=== PATIENT | female | born 1960 | race Caucasian/White ===

== ENCOUNTER 2017-01-20 06:10 | Inpatient (IN) ==
[2017-01-20] MEDS ORDERED: CeFAZolin Pre 2,000 MG/100 ML 2,000 MG/100 ML BAG IVPB ONE (06:26)
[2017-01-20] MEDS ORDERED: Ringers Solution, Lactated 1,000 ML IVC SCH (06:30)
[2017-01-20] MEDS ORDERED: *HR* FentaNYL (PF) 100 MCG/2 ML VIAL ONE (07:06)
[2017-01-20] MEDS ORDERED: *HR* Propofol 200 MG/20 ML VIAL IVP ONE (07:06)
[2017-01-20] MEDS ORDERED: Dexamethasone 4 MG/ML VIAL ONE (07:06)
[2017-01-20] MEDS ORDERED: *HR* Midazolam HCl 2 MG/2 ML VIAL ONE (07:06)
[2017-01-20] MEDS ORDERED: *HR* Rocuronium Bromide 50 MG/5 ML VIAL ONE (07:06)
[2017-01-20] MEDS ORDERED: Neostigmine Methylsulfate 3 MG/3 ML SYRINGE ONE (07:06)
[2017-01-20] MEDS ORDERED: Ondansetron 4 MG/2 ML VIAL ONE (07:06)
[2017-01-20] MEDS ORDERED: *HR* Succinylcholine 200 MG/10 ML VIAL IVP ONE (07:06)
[2017-01-20] MEDS ORDERED: Lidocaine -MPF 4% 5 ML AMPUL ONE (07:06)
[2017-01-20] MEDS ORDERED: Lidocaine -MPF 2% 2 ML VIAL ONE (07:07)
--- NOTE | 2017-01-20 07:08 | Anesthesia Evaluation PreOp ---
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 History: Denies Any Significant HX Other Medical History: Thyroid, GERD, Other (bipolar, PTSD, anxiety) Anesthesia History: No Prior Anesthetic Complications, Past Anesthesia ( hysterectomy) Alcohol Use: occasionally Drug use: marijuana Medications and Allergies Alendronate Sodium 45 mg PO FR 08/11/15 [History] Levothyroxine [Synthroid] 25 mcg PO 0630 08/11/15 [History] Methocarbamol [Robaxin-750] 750 mg PO Q4H PRN 08/11/15 [History] Multivitamin [Flintstones] 1 each PO DAILY 08/11/15 [History] Psyllium Husk [Fiber] 0.52 gm PO DAILY 08/11/15 [History] SUMAtriptan Succinate [Imitrex] 100 mg PO DAILY PRN 08/11/15 [History] Topiramate [Topamax] 50 mg PO BID 08/11/15 [History] Alprazolam [Xanax 1 MG Tablet] 1 mg PO DAILY PRN 05/24/16 [History] Ergocalciferol (VITAMIN D2) [Vitamin D] 400 unit PO DAILY 05/24/16 [History] Gabapentin [Neurontin] 1,200 mg PO BID 05/24/16 [History] Pantoprazole Sodium [Protonix] 60 mg PO DAILY 05/24/16 [History] Quetiapine Fumarate [Seroquel] 300 mg PO HS 05/24/16 [History] Venlafaxine HCl [Venlafaxine HCl ER] 225 mg PO DAILY 10/27/16 [History] Allergies bupropion [From Wellbutrin] Adverse Reaction (Verified 10/27/16 08:37) Panic Attack fluoxetine [From Prozac] Adverse Reaction (Verified 10/27/16 08:37) Mood Swings Nickel Adverse Reaction (Verified 10/27/16 08:37) Hives sulfamethoxazole [From Bactrim] Adverse Reaction (Verified 10/27/16 08:37) Nausea trimethoprim [From Bactrim] Adverse Reaction (Verified 10/27/16 08:37) Nausea - Meds/Allergy Pre-op Review Medications Reviewed: Yes Allergies Reviewed: Yes Beta Blockers on Current Med List: No Anesthesia Results - Labs Laboratory Tests 05/12/16 12/10/16 01/18/17 14:51 13:40 09:40 WBC 6.5 Hgb 12.5 Hct 37.9 Plt Count 282 Sodium 143 Potassium 4.7 H BUN 17 Creatinine 0.87 - Imaging EKG: report reviewed (08/04/2015 SR, low QRS voltage in precordial leads, possible anterior/inferior infarct) Anesthesia Exam Height: 5' Weight: 182 lbs - HEENT Pupil (Motor): EOMI Mallampati: III Teeth: Normal Oral Opening: Greater than 3 - GLASS CALIBRATOR LOC: Oriented GLASS CALIBRATOR Motor: Normal RUE, Normal LUE, Normal RLE, Normal LLE, Normal Face GLASS CALIBRATOR Sensory: Normal: RUE, LUE, RLE, LLE, Face - Cardiac Rhythm: Regular Murmur: None - Pulmonary Breath Sounds: bilateral Clear Respiratory Effort: Symmetrical Anesthesia Assess/Plan ASA Score: 2 Modified [place] Scale for Level of Consciousness: Cooperative, oriented, and tranquil Anesthetic Plan: General Monitoring Plan: Standard Monitors Recovery Plan: PACU
[2017-01-20] MEDS ORDERED: *HR* Phenylephrine 10 MG/ML VIAL ONE (07:15)
--- NOTE | 2017-01-20 07:30 | History & Physical Report ---
Date of Encounter: 01/20/17 Time of Encounter: 07:20 24 Hour HP Update - Instructions Instructions: If the History and Physical is less than 30 days old and was completed prior to A.M. admission and or procedure and has NOT been updated on calendar day of procedure please complete this update prior to performing procedure. - Update Patient reports changes in Medical Condition: No Changes in examination, assessment, or condition: No Changes in Medication: No Preop tests/diagnostics Reviewed: Yes Surgery Remains Indicated: Yes Consent for Planned Operative Procedure(s) Verified: Yes - Pre-Operative Checklist Preoperative Checklist Indicated: Yes Prophylactic Antibiotic Ordered: Yes Home Medications Include Beta Rajni: No Is VTE Prophylaxis Indicated?: Yes
[2017-01-20] MEDS ORDERED: Ketamine *HR* 500 MG/10 ML MDV ONE (07:40)
[2017-01-20] MEDS ORDERED: *HR* Meperidine 25 MG/ML SYRINGE IVP PRN (08:22)
[2017-01-20] MEDS ORDERED: Ondansetron 4 MG/2 ML VIAL IVP PRN (08:22)
[2017-01-20] MEDS ORDERED: *HR* Promethazine 25 MG/ML VIAL IVP PRN ×2 (08:22→21:59)
[2017-01-20] MEDS ORDERED: Naloxone 0.4 MG/ML INJ IVP PRN (08:22)
[2017-01-20] MEDS ORDERED: CefOXitin 1,000 MG VIAL ONE (09:14)
[2017-01-20] MEDS ORDERED: Bupivacaine/EPI 1:200k 0.5%PF 30 ML VIAL ONE (09:26)
[2017-01-20] MEDS ORDERED: *HR* HYDROmorphone 2 MG/ML SYRINGE ONE (09:32)
--- NOTE | 2017-01-20 09:40 | Operative Note ---
Date of procedure: 01/20/17 Pre-op diagnosis: Paraesophageal hernia with gastric volvulus Post-op diagnosis: same Procedure: Open repair of paraesophageal hiatal hernia. Pb fundoplication Anesthesia: JACK Surgeon: Juventino Call Estimated blood loss (cc): 20 Specimen: Hernia sac Condition: stable Disposition: PACU Procedure in Detail: After informed consent the patient was taken major operating suite and placed in supine position and given adequate general endotracheal anesthesia. The abdomen is prepped and draped in sterile fashion utilizing ChloraPrep standard draping techniques. Daquan taken patient is identified. Made an upper abdominal midline incision. As expected, the stomach was not visible in the abdomen and completely intrathoracic. I placed a Bookwalter retractor. I divided the triangular ligament of the lateral segment of the left lobe liver and rotated the lateral segment downward and medial. This exposed the hiatus. I divided the peritoneum overlying the front portion of the hiatus. A nasogastric tube was placed in the esophagus and the stomach and this allowed for initial dissection. I divided the hernia sac on the right side and lesser curve and dissected down to the right alexa of the diaphragm. Once this was done I was able to isolate the remainder of the hernia sac that initiated at the first short gastric of the cardia. This is an enormous hernia sac I removed this from the mediastinum.. The hernia sac was completely removed. I divided 3 short gastrics. This gave me complete visualization of the hiatus. I then surrounded the gastroesophageal junction with a Ramakrishna drain and retracted the GE junction left. I was able to clearly visualize the hiatus. The hiatal hernia repair was performed with 4 stitches of 2-0 Ethibond with pledgets. The cardia was brought behind the gastroesophageal junction into approximation for Pb fundoplication. 3 stitches of 2-0 Ethibond with pledgets were used to create the Pb fundoplication. I then placed a shoulder stitch on the right and left to stabilize the wrap to the diaphragm. Total blood loss 20 mL. This gave an excellent technical result. The stomach was completely intra-abdominal. There were no connections to the mediastinum. The wrap was performed around a lighted #56-Icelandic bougie which was removed at the end of the case. Midline was closed with looped 0 PDS and skin with interrupted Vicryl and skin clips.
[2017-01-20] MEDS: *HR* HYDROmorphone (PF) 1 MG/ML SYRINGE IVP PRN ×7 (09:59→22:25)
--- NOTE | 2017-01-20 10:29 | Anesthesia Evaluation Post Op ---
Date of Encounter: 01/20/17 Time of Encounter: 10:28 - Vital Signs Vital Signs: Vital Signs/O2 Sat, Most Current Temp Pulse Resp BP Pulse Ox 97.3 F L 74 16 130/75 98 01/20/17 10:24 01/20/17 10:24 01/20/17 10:24 01/20/17 10:24 01/20/17 10:24 - Lungs Lungs: Clear Ascult./Percussion - Airway Airway: Non-obstructed - Cardiovascular Regular Rate - Mental Status Mental Status: Alert & Oriented, Answers Appropriately - Pain Pain Scale: 4 Pain Scale used: Numeric (1 - 10) - Nausea Vomiting Nausea Vomiting: Not Present - Hydration Hydration: Ice chips - Discharge PostOp Status: Discharge Patient to home (VSS, awake, no anesthetic complications)
[2017-01-20] MEDS: 0.9 % Sodium Chloride 1,000 ML IVC SCH (12:12)
[2017-01-20] MEDS: Ondansetron 4 MG/2 ML VIAL IVP PRN (17:18)
[2017-01-20] MEDS: ceFAZolin 2,000 MG in D5% in Water 100 ML IVPB SCH (17:19)
[2017-01-20] MEDS: *HR* Heparin 5,000 UNIT/ML VIAL SQ SCH (17:19)
[2017-01-20] MEDS ORDERED: *HR* Heparin 5,000 UNIT/ML VIAL SQ SCH (18:00)
[2017-01-21] MEDS: ceFAZolin 2,000 MG in D5% in Water 100 ML IVPB SCH (00:10)
[2017-01-21] MEDS: *HR* HYDROmorphone (PF) 1 MG/ML SYRINGE IVP PRN ×6 (00:11→11:03)
[2017-01-21] MEDS: 0.9 % Sodium Chloride 1,000 ML IVC SCH ×2 (00:19→17:25)
[2017-01-21] MEDS: Ondansetron 4 MG/2 ML VIAL IVP PRN ×2 (03:12→12:34)
[2017-01-21] MEDS: *HR* Heparin 5,000 UNIT/ML VIAL SQ SCH ×2 (05:46→17:25)
[2017-01-21] MEDS: Pantoprazole 40 MG VIAL IVP SCH (07:47)
[2017-01-21] MEDS ORDERED: *HR* LORazepam 2 MG/ML VIAL IVP PRN (12:10)
--- NOTE | 2017-01-21 12:13 | General Surgery Progress Note ---
Date of Encounter: 01/21/17 Time of Encounter: 12:10 - Assessment and Plan (1) Hiatal hernia Current Visit: Yes Status: Chronic POD #1 Open repair of paraesophageal hiatal hernia. Pb fundoplication NPO IV fluids at 75ml/hour Supportive care/pain control- dilaudid DIRECTOR LAW ENFORCEMENT Increase activity- out of bed to chair IS every 1 hour while awake D/C michelle catheter Daily dressing change AM labs (2) GERD (gastroesophageal reflux disease) Current Visit: Yes Status: Chronic POD #1 Open repair of paraesophageal hiatal hernia. Pb fundoplication NPO IV fluids at 75ml/hour Supportive care/pain control- dilaudid DIRECTOR LAW ENFORCEMENT Increase activity- out of bed to chair IS every 1 hour while awake D/C michelle catheter PPI therapy daily Qualifiers: Esophagitis presence: esophagitis presence not specified Qualified Code(s) : K21.9 - Gastro-esophageal reflux disease without esophagitis (3) Anxiety Current Visit: Yes Status: Acute Hold PO meds due to NPO status Added Ativan IV every 8 hours prn Will monitor and adjust as necessary (4) DVT prophylaxis Current Visit: Yes Status: Acute Heparin 5,000 units SQ twice daily for DVT prophylaxis Subjective Patient reports: no new complaints, still having pain, no flatus, no bowel movement, afebrile, other (complaint of belching; patient tearful) Objective Vital Signs - Last 8 Hours Temp Pulse Resp BP Pulse Ox 01/21/17 11:38 98.2 F 86 18 124/86 95 01/21/17 07:41 98.1 F 81 18 118/76 94 Intake and Output 01/20/17 01/21/17 01/21/17 23:59 07:59 15:59 Intake Total 700 / 700 731 / 731 0 / 0 Output Total 750 / 750 600 / 600 250 / 250 Balance -50 / -50 131 / 131 -250 / -250 Intake: IV Fluids 700 / 700 731 / 731 0.9 % Sodium Chloride 1, 600 / 600 731 / 731 000 ML @ 75 mls/hr IVC . [id number] [facility] Rx#: [id number] Ancef 2,000 MG In 100 / 100 Dextrose 5% 100 ML @ 200 mls/hr IVPB Q8HR [facility] Rx#: [id number] Oral 0 / 0 0 / 0 Output: Urine 750 / 750 Urethral (Michelle) 750 / 750 Catheter 600 / 600 250 / 250 Other: Meal npo Weight 82.8 kg Blood Glucose* 123 92 99 Patient Weight 01/21/17 23:59 Weight 82.8 kg - General physical appearance well developed, well nourished, no distress, moderate pain - Eyes normal ocular movement - ENT atraumatic, normocephalic - Neck Neck exam: trachea midline - Respiratory normal respiratory effort, clear to auscultation, other (diminished bibasilar bases) - Cardiovascular Cardiovascular exam: Present: RRR - Abdomen Abdomen: Present: bowel sounds present, soft, tender (expected post-operative tenderness) - Incision Incision: Present: clean and dry, intact - Genitourinary other (michelle catheter to SD with clear, yellow urine noted) - Neurologic CN 2-12 grossly intact - Psychiatric oriented to time, oriented to person, oriented to place, speech is normal, memory intact - VTE Documentation of Mechanical Device: Intermittent pneumatic compression device Consult Discharge Plan - Plan Referrals: [facility] [Primary Care Provider] - - Attending Attestation I examined this patient and my medical decision-making was reviewed with the TIME CLOCK MECHANIC/PA/Advanced Practice Nurse/Resident Physician. I agree with the documented findings, disposition and treatment plan as described except to the extent set forth below. The patient was seen and evaluated on morning rounds. Her pain control is excellent. Her reflux is gone. Her dysphagia is gone. She is not having any chest pain on physical examination she has bowel sounds. I think if she is doing well this afternoon we will start voiding restricted diet as well as her medicines she is postoperative day 1 for reduction an enormous paraesophageal hernia with Pb fundoplication and hiatal hernia repair Juventino Call MD FACS
[2017-01-21] MEDS: Levothyroxine Sodium 100 MCG VIAL IVP SCH (12:34)
[2017-01-21] MEDS: *HR* HYDROmorphone 20 MG/20 ML PCA IVC PRN (13:02)
[2017-01-22 03:18] LABS: BUN/Creatinine Ratio 12 (6-26); Blood Urea Nitrogen 8 mg/dL (7-20); Calcium 8.6 mg/dL (8.6-10.8); Carbon Dioxide 20 mEq/L (19-29); Chloride 108 mEq/L (98-109); Glucose 99 mg/dL (70-99); Osmolality,Calculated 278 (280-300); Potassium 4.1 mEq/L (3.5-4.5); Sodium 135 mEq/L (136-145); eGFR For African Americans > 60 (> 60); eGFR For Non-African Americans > 60 (> 60)
[2017-01-22 03:22] LABS: Basophils % 0.1 %; Hematocrit 36.8 % (35.3-44.9); Hemoglobin 11.9 g/dL (11.5-15.4); Immature Granulocytes % 0.3 % (0-4); Immature Platelets 1.3 % (1.1-6.1); Mean Corpuscular HGB Conc 32.3 g/dL (31.6-35.5); Mean Corpuscular Hemoglobin 26.5 pg (28.0-33.3); Mean Platelet Volume 9.6 fL (9.4-12.4); Monocytes # 0.7 K/mcL (0.0-1.3); Monocytes % 8.1 %; Neutrophils # 7.1 K/mcL (1.6-8.9); Platelet Count 224 K/mcL (140-400); Red Blood Count 4.49 M/mcL (3.82-4.97); Segmented Neutrophils % 80.5 %
[2017-01-22 03:24] LABS: Platelet Estimate Normal (Normal)
[2017-01-22] MEDS: 0.9 % Sodium Chloride 1,000 ML IVC SCH ×2 (03:46→17:25)
[2017-01-22] MEDS: *HR* Heparin 5,000 UNIT/ML VIAL SQ SCH ×2 (06:04→17:26)
[2017-01-22] MEDS: Pantoprazole 40 MG VIAL IVP SCH (08:45)
[2017-01-22] MEDS: Levothyroxine Sodium 100 MCG VIAL IVP SCH (08:45)
--- NOTE | 2017-01-22 10:57 | General Surgery Progress Note ---
Date of Encounter: 01/22/17 Time of Encounter: 10:56 - Assessment and Plan (1) Hiatal hernia Current Visit: Yes Status: Chronic will start clears Subjective Patient reports: pain is less, flatus Objective Vital Signs - Last 8 Hours Temp Pulse Resp BP Pulse Ox 01/22/17 07:00 98.0 F 93 16 126/91 94 01/22/17 03:55 98.1 F 88 15 124/83 99 Intake and Output 01/21/17 01/22/17 01/22/17 23:59 07:59 15:59 Intake Total 669 / 669 0 / 0 Output Total 625 / 625 100 / 100 100 / 100 Balance 44 / 44 -100 / -100 -100 / -100 Intake: IV Fluids 669 / 669 0.9 % Sodium Chloride 1, 669 / 669 000 ML @ 75 mls/hr IVC . [id number] [facility] Rx#: [id number] Oral 0 / 0 0 / 0 Output: Urine 100 / 100 100 / 100 Catheter 625 / 625 Other: Meal NPO NPO breakfast Weight 83.234 kg Blood Glucose* 93 101 Patient Weight 01/22/17 23:59 Weight 83.234 kg - General physical appearance well nourished, no distress - Abdomen Abdomen: Present: bowel sounds present, soft, non tender - Incision Incision: Present: clean and dry - Labs 01/22/17 02:18 01/22/17 02:50 Diabetes panel 01/22/17 Range/Units 02:50 Sodium 135 L (136-145) mEq/L Potassium 4.1 (3.5-4.5) mEq/L Chloride 108 (98-109) mEq/L Carbon Dioxide 20 (19-29) mEq/L BUN 8 (7-20) mg/dL Creatinine 0.65 (0.57-1.11) mg/dL Glucose 99 (70-99) mg/dL Calcium 8.6 (8.6-10.8) mg/dL Calcium panel 01/22/17 Range/Units 02:50 Calcium 8.6 (8.6-10.8) mg/dL Pituitary panel 01/22/17 Range/Units 02:50 Sodium 135 L (136-145) mEq/L Potassium 4.1 (3.5-4.5) mEq/L Chloride 108 (98-109) mEq/L Carbon Dioxide 20 (19-29) mEq/L BUN 8 (7-20) mg/dL Creatinine 0.65 (0.57-1.11) mg/dL Glucose 99 (70-99) mg/dL Calcium 8.6 (8.6-10.8) mg/dL Adrenal panel 01/22/17 Range/Units 02:50 Sodium 135 L (136-145) mEq/L Potassium 4.1 (3.5-4.5) mEq/L Chloride 108 (98-109) mEq/L Carbon Dioxide 20 (19-29) mEq/L BUN 8 (7-20) mg/dL Creatinine 0.65 (0.57-1.11) mg/dL Glucose 99 (70-99) mg/dL Calcium 8.6 (8.6-10.8) mg/dL - VTE Documentation of Mechanical Device: Intermittent pneumatic compression device Consult Discharge Plan - Plan Referrals: [facility] [Primary Care Provider] -
[2017-01-22] MEDS: Ondansetron 4 MG/2 ML VIAL IVP PRN (14:02)
[2017-01-22] MEDS: *HR* HYDROmorphone 20 MG/20 ML PCA IVC PRN (17:51)
[2017-01-23] MEDS: *HR* Heparin 5,000 UNIT/ML VIAL SQ SCH ×2 (06:03→17:41)
[2017-01-23] MEDS: 0.9 % Sodium Chloride 1,000 ML IVC SCH (06:04)
[2017-01-23] MEDS: Ondansetron 4 MG/2 ML VIAL IVP PRN (07:51)
[2017-01-23] MEDS: Levothyroxine Sodium 100 MCG VIAL IVP SCH (07:53)
[2017-01-23] MEDS: Pantoprazole 40 MG VIAL IVP SCH (07:53)
--- NOTE | 2017-01-23 13:03 | General Surgery Progress Note ---
Date of Encounter: 01/23/17 Time of Encounter: 13:02 - Assessment and Plan (1) Hiatal hernia Current Visit: Yes Status: Chronic Patient tolerated clear liquid tray. She may be advanced to full liquids. Dr. Call will return tomorrow. Subjective Patient reports: feels better Objective Vital Signs - Last 8 Hours Temp Pulse Resp BP Pulse Ox 01/23/17 11:00 98.2 F 85 16 131/88 97 01/23/17 07:00 98.2 F 89 16 135/93 97 Intake and Output 01/22/17 01/23/17 01/23/17 23:59 07:59 15:59 Intake Total 1160 / 1160 1720 / 1720 840 / 840 Output Total 650 / 650 1100 / 1100 500 / 500 Balance 510 / 510 620 / 620 340 / 340 Intake: IV Fluids 1100 / 1100 1000 / 1000 0.9 % Sodium Chloride 1, 1000 / 1000 1000 / 1000 000 ML @ 75 mls/hr IVC . [id number] [facility] Rx#: [id number] Oral 60 / 60 720 / 720 840 / 840 Output: Urine 650 / 650 1100 / 1100 500 / 500 Other: Meal Dinner Breakfast Weight 83.064 kg Patient Weight 01/23/17 23:59 Weight 83.064 kg - Respiratory normal expansion - Cardiovascular Cardiovascular exam: Present: NR - Abdomen Abdomen: Present: bowel sounds present, soft - Incision Incision: Present: clean and dry - Labs 01/22/17 02:18 01/22/17 02:50 - VTE Documentation of Mechanical Device: Intermittent pneumatic compression device Consult Discharge Plan - Plan Referrals: [facility] [Primary Care Provider] -
[2017-01-23] MEDS: *HR* OxyCODONE/APAP 5/325 TABLET PO PRN ×2 (16:20→22:28)
[2017-01-23] MEDS ORDERED: ALPRAZolam 1 MG TABLET PO PRN (21:08)
[2017-01-23] MEDS: Topiramate 25 MG TABLET PO SCH (22:00)
[2017-01-24] MEDS: *HR* Heparin 5,000 UNIT/ML VIAL SQ SCH (05:45)
--- NOTE | 2017-01-24 08:14 | Discharge Summary ---
Date of Encounter: 01/24/17 Time of Encounter: 08:00 - Discharge Diagnosis (1) Hiatal hernia Priority: Primary Status: Chronic Comments: The patient underwent open repair of paraesophageal hernia and Pb fundoplication. She is recuperating well from surgery and is ready for discharge. She is tolerating full liquid (2) GERD (gastroesophageal reflux disease) Priority: Secondary Status: Chronic Qualifiers: Esophagitis presence: esophagitis presence not specified Qualified Code(s) : K21.9 - Gastro-esophageal reflux disease without esophagitis (3) Anxiety Priority: Secondary Status: Acute (4) DVT prophylaxis Priority: Secondary Status: Acute - Discharge Medications Prescriptions: OxyCODONE/APAP 5/325 [Percocet 5/325 MG] 1 each PO Q6HR PRN #36 tablet PRN Reason: Pain Home Medications: Alendronate Sodium 45 mg PO FR 08/11/15 [History] Methocarbamol [Robaxin-750] 750 mg PO Q4H PRN 08/11/15 [History] Multivitamin [Flintstones] 1 each PO DAILY 08/11/15 [History] Psyllium Husk [Fiber] 0.52 gm PO DAILY 08/11/15 [History] SUMAtriptan Succinate [Imitrex] 100 mg PO DAILY PRN 08/11/15 [History] Topiramate [Topamax] 75 mg PO BID 08/11/15 [History] Alprazolam [Xanax 1 MG Tablet] 1 mg PO DAILY PRN 05/24/16 [History] Ergocalciferol (VITAMIN D2) [Vitamin D] 400 unit PO DAILY 05/24/16 [History] Gabapentin [Neurontin] 1,200 mg PO BID 05/24/16 [History] Venlafaxine HCl [Venlafaxine HCl ER] 225 mg PO DAILY 10/27/16 [History] Levothyroxine [Synthroid] 100 mcg PO 0630 01/20/17 [History] Pantoprazole Sodium [Protonix] 40 mg PO DAILY 01/20/17 [History] Quetiapine Fumarate [Seroquel] 400 mg PO HS 01/20/17 [History] OxyCODONE/APAP 5/325 [Percocet 5/325 MG] 1 each PO Q6HR PRN #36 tablet 01/24/17 [Rx] Allergies/Adverse Reactions: Allergies bupropion [From Wellbutrin] Adverse Reaction (Verified 01/20/17 07:11) Panic Attack fluoxetine [From Prozac] Adverse Reaction (Verified 01/20/17 07:11) Mood Swings Nickel Adverse Reaction (Verified 01/20/17 07:11) Hives sulfamethoxazole [From Bactrim] Adverse Reaction (Verified 01/20/17 07:11) Nausea trimethoprim [From Bactrim] Adverse Reaction (Verified 01/20/17 07:11) Nausea General Surgery Exam Initial Vital Signs Temp Pulse Resp BP Pulse Ox 98.1 F 78 18 103/74 98 01/20/17 06:31 01/20/17 06:31 01/20/17 06:31 01/20/17 06:31 01/20/17 06:31 - General physical appearance well developed, well nourished, no distress - Respiratory normal expansion, normal respiratory effort, clear to percussion, clear to auscultation - Cardiovascular Cardiovascular exam: Present: RRR, 15, 16 - Abdomen Abdomen general surgery: Present: bowel sounds present, soft, non tender - Incision Incision: Present: clean and dry - Musculoskeletal Present: normal gait, normal posture - Psychiatric Psychiatric general surgery: Present: appropriate, oriented to person, oriented to place, oriented to time, speech is normal, memory intact Date of admission: 01/20/17 11:04 Primary care physician: PCP [place] Discharging clinician: Juventino Call Anticipated date of discharge: 01/24/17 - Patient Status Disposition: Home, Self-Care Condition: Good Functional capacity at discharge: independent ambulation Overall status at discharge: patient is progressing back to baseline - Discharge Instructions Follow Up With: [place],PCP [Primary Care Provider] - Juventino Call MD [Partnered Physician] - Additional Instructions: Do not lift more than 20 pounds for 6 weeks from the date of surgery. Do not drive a car taking narcotic pain medicine. Maintain Full liquid diet - Diet and Activity Activity: increase activity as tolerated Diet: other (Full liquid diet) - Hospital Course Hospital course: Ms. Ruffin is a 56 year old female The patient underwent open repair of paraesophageal hernia. Essentially the entire stomach was in the chest. Once paraesophageal hernia was repaired Pb fundoplication was performed. She was advanced on diet over the last several days and is now tolerating full liquids. Ready for discharge - Time Spent with Patient Total time spent providing and/or coordinating discharge services: 20 minutes spent on discharge planning Less than 30 minutes Specific discharge activities: Full liquid diet. Do not lift more than 20 pounds for 6 weeks from the date of surgery Labs on day of discharge: Labs from last 24 hours 01/21/17 11:40 POC Glucose 99 H
[2017-01-24] MEDS: Topiramate 25 MG TABLET PO SCH (08:16)
[2017-01-24] MEDS: Pantoprazole 40 MG VIAL IVP SCH (08:18)
[2017-01-24 08:33] VITALS: BP 157/93
[2017-01-24] MEDS: *HR* OxyCODONE/APAP 5/325 TABLET PO PRN (09:23)
== END 2017-01-24 11:57 | disposition home or self-care (01) | DRG 328 ==
LOC: SAMDAY 06:10 → 3ANU 11:04
PROVIDERS: ADMIT Surgery; ATTEND Surgery